=== PATIENT | male | born 1985 | race American Indian/Alaskan Native ===

== ENCOUNTER 2019-06-07 11:32 | Emergency (ER) | payer SELFPAY ==
[2019-06-07 11:37] VITALS: BP 161/107
--- NOTE | 2019-06-07 11:39 | Emergency Department Report ---
Blank Doc - Documentation Documentation: 34-year-old male that presents with right wrist pain and swelling s/p fall. This initial assessment/diagnostic orders/clinical plan/treatment(s) is/are subject to change based on patient's health status, clinical progression and re- assessment by fellow clinical providers in the ED. Further treatment and workup at subsequent clinical providers discretion. Patient/guardians urged not to elope from the ED as their condition may be serious if not clinically assessed and managed. Initial orders include: 1- Patient sent to [facility] for further evaluation and treatment 2- xrays
--- NOTE | 2019-06-07 12:54 | XRay Report ---
RIGHT WRIST HISTORY: wrist pain and swelling COMPARISON: None. TECHNIQUE: 3 views of the right wrist obtained. FINDINGS: Bones: No fracture or dislocation. Joint spaces: Maintained. Soft tissues: Soft tissue swelling at the lateral aspect of the hand but minimal swelling at the wris t. No foreign body. Additional findings: None. IMPRESSION: 1. No significant abnormality of the wrist. 2. Nonspecific soft tissue swelling of the hand. Signer Name: Miguel A Garcia MD Signed: 06/07/2019 12:49 PM Workstation Name: [id number]
--- NOTE | 2019-06-07 13:34 | Emergency Department Report ---
ED General Adult HPI - General Chief complaint: Extremity Injury, Upper Stated complaint: RIGHT WRIST/HAND PAIN Time Seen by Provider: 06/07/19 11:38 Source: patient Mode of arrival: Ambulatory Limitations: No Limitations - History of Present Illness Initial comments: This is a 34-year-old male who presents to ED complaining of right hand swelling and pain for the past week. Patient states that about a month ago he was wrestling with one of his brothers and accidentally injured his hand. Patient states that he only had minimal pain at incident and did not have it evaluated. Patient states for the past week he's had some swelling and pain to the right hand and wrist area. Patient denies any recent injuries or traumas or falls. - Related Data Previous Rx's Medication Instructions Recorded Last Taken Type Cyclobenzaprine [Flexeril] 10 mg PO TID PRN #15 tablet 06/07/19 Unknown Rx Ibuprofen [Motrin 800 MG tab] 800 mg PO Q8HR PRN #30 tablet 06/07/19 Unknown Rx Allergies Allergy/AdvReac Type Severity Reaction Status Date / Time No Known Allergies Allergy Unverified 06/07/19 11:36 ED Review of Systems ROS: Stated complaint: RIGHT WRIST/HAND PAIN Other details as noted in HPI Comment: All other systems reviewed and negative ED Past Medical Hx - Past Medical History Previous Medical History?: No - Surgical History Past Surgical History?: No - Social History Smoking Status: Never Smoker Substance Use Type: Alcohol - Medications Home Medications: Home Medications Medication Instructions Recorded Confirmed Last Taken Type Cyclobenzaprine [Flexeril] 10 mg PO TID PRN #15 tablet 06/07/19 Unknown Rx Ibuprofen [Motrin 800 MG tab] 800 mg PO Q8HR PRN #30 tablet 06/07/19 Unknown Rx ED Physical Exam - General Limitations: No Limitations General appearance: alert, in no apparent distress - Head Head exam: Present: atraumatic, normocephalic - Eye Eye exam: Present: normal appearance - ENT ENT exam: Present: mucous membranes moist - Neck Neck exam: Present: normal inspection - Respiratory Respiratory exam: Present: normal lung sounds bilaterally. Absent: respiratory distress - Cardiovascular Cardiovascular Exam: Present: regular rate, normal rhythm. Absent: systolic murmur, diastolic murmur, rubs, gallop - GI/Abdominal GI/Abdominal exam: Present: soft, normal bowel sounds - Rectal Rectal exam: Present: deferred - Extremities Exam Extremities exam: Present: normal inspection, full ROM, tenderness (mild tenderness to palpation of the hand, no deformity noted), normal capillary refill, joint swelling (minimal) - Back Exam Back exam: Present: normal inspection - Neurological Exam Neurological exam: Present: alert, oriented X3 - Expanded Neurological Exam Expanded Patient oriented to: Present: person, place, time Speech: Present: fluid speech Sensory exam: Upper Extremity Light Touch: Normal - Psychiatric Psychiatric exam: Present: normal affect, normal mood - Skin Skin exam: Present: warm, dry, intact, normal color. Absent: rash ED Course Vital Signs 06/07/19 11:36 Temperature 98.1 F Pulse Rate 74 Respiratory 16 Rate Blood Pressure 161/107 O2 Sat by Pulse 93 Oximetry ED Medical Decision Making - Radiology Data Radiology results: report reviewed Impression: No fracture or dislocation noted. Nonspecific soft tissue swelling of the hand, no abnormality noted of the wrist. - Medical Decision Making This 34-year-old male presents with sprain of the wrist. X-ray shows no acute fracture or dislocation. 60milligrams of prednisone given in ED to help with the swelling and i nflammation. Discussed findings with the patient. Discussed the patient to follow-up with primary care physician. Assessment the patient may need to follow-up with an orthopedic surgeon or neurologist as well. All vital signs are normal patient is in no acute distress. Discussed ice or heat therapy 3 times a day. Critical care attestation.: If time is entered above; I have spent that time in minutes in the direct care of this critically ill patient, excluding procedure time. ED Disposition Clinical Impression: Right wrist sprain Disposition: [id number] TO HOME OR SELFCARE Is pt being admited?: No Does the pt Need Aspirin: No Condition: Stable Instructions: Arthralgia (ED), Tendinitis (ED) Additional Instructions: Make sure to follow up with the primary care physician as discussed. Take all your medications as you've been prescribed. If you have any worsening symptoms or develop new symptoms please return to ED immediately. Prescriptions: Cyclobenzaprine [Flexeril] 10 mg PO TID PRN #15 tablet PRN Reason: Muscle Spasm Ibuprofen [Motrin 800 MG tab] 800 mg PO Q8HR PRN #30 tablet PRN Reason: Pain Referrals: [facility] [Provider Group] - 3-[address] [facility] [Outside] - 3-5 Days [facility] [Outside] - 3-5 Days Forms: Accompanied Note, Work/School Release Form(ED)
[2019-06-07] MEDS ORDERED: predniSONE 20 MG TAB PO ONE (14:20)
== END 2019-06-07 14:54 | disposition home or self-care (01) ==
LOC: ED 11:32
DX: S63.501A Unspecified sprain of right wrist, initial encounter (principal); Y04.8XXA Assault by other bodily force, initial encounter; Y93.72 Activity, wrestling; Y92.89 Other specified places as the place of occurrence of the external cause; Y99.8 Other external cause status
CPT/HCPCS: 73110; 99283; J7512